=== PATIENT | male | born 1950 | race Caucasian/White ===

== ENCOUNTER 2019-05-11 12:21 | Inpatient (IN) | payer OTHER, BC ==
[~2019-05-11] VITALS: Ht 190.5 cm; Wt 93.9 kg
[~2019-05-11 12:21] MED LIST: ANDROGEL1.25 GM TOP; COLACE100 MG PO; COREG6.25 M1 PO; DECADRON4 MG PO; HYDRALAZINE HCL50 MG PO; INLYTA5 MG PO; LASIX40 MG PO; LEVO-T25 MCG PO; PROTONIX TR40 M1 PO; VITAMIN B12-FO1 EACH PO; ZETIA10 M1 PO; ZOS3PM IV
[2019-05-11 12:22] VITALS: Ht 190.5 cm; Wt 93.9 kg
[2019-05-11 12:48] LABS: BASOPHIL % 0.3 % (0-2); PLATELET COUNT 216 x10^3mcL (130-400)
[2019-05-11 12:54] LABS: RED CELL DISTRIBUTION WIDTH 20.9 % (11.5-14.5)
[2019-05-11 13:04] LABS: CALCIUM 8.2 mg/dL (8.5-10.1); CARBON DIOXIDE 31.7 mmol/L (21-32); CHLORIDE SERUM 99 mmol/L (98-107); CREATININE SERUM 0.9 mg/dL (0.7-1.3); GFR1 > 60 mL/min; GLUCOSE SERUM 132 mg/dL (74-106); POTASSIUM SERUM 4.5 mmol/L (3.5-5.1); SODIUM SERUM 136 mmol/L (136-145)
[2019-05-11 13:17] LABS: ALBUMIN 1.7 g/dL (3.4-5.0); ALKALINE PHOSPHATASE 218 U/L (46-116); ALT/SGPT 42 U/L (16-63); AST/SGOT 48 U/L (15-37); BILIRUBIN TOTAL 0.7 mg/dL (0.20-1.00); MAGNESIUM 1.6 mg/dL (1.8-2.4); TOTAL PROTEIN, SERUM 6.1 g/dL (6.4-8.2)
[2019-05-11 14:17] LABS: microscopic required? YES; urine erythrocyte TRACE (NEGATIVE)
[2019-05-11 17:46] VITALS: BP 169/88
[2019-05-11 20:15] VITALS: BP 115/58
[2019-05-12 05:10] VITALS: BP 87/50
[2019-05-12 15:09] VITALS: BP 87/45
[2019-05-12 17:23] VITALS: BP 133/64
[2019-05-12 17:27] VITALS: BP 94/45
[2019-05-12 21:13] VITALS: BP 96/48
[2019-05-13 04:14] VITALS: BP 70/40
== END 2019-05-13 09:19 | disposition expired | DRG 189 ==
LOC: ED 12:21 → MU 14:50 → ED 14:50 → IC 14:50 → DU 14:50 → MU 15:01 → IC 15:01 → MU 15:27 → DU 16:18
PROVIDERS: Emergency Medicine; ADMIT Family Medicine
DX: J96.21 Acute and chronic respiratory failure with hypoxia (principal); E43 Unspecified severe protein-calorie malnutrition; C34.90 Malignant neoplasm of unspecified part of unspecified bronchus or lung; C79.51 Secondary malignant neoplasm of bone; E11.9 Type 2 diabetes mellitus without complications; Z66 Do not resuscitate; R74.0 Nonspecific elevation of levels of transaminase and lactic acid dehydrogenase [LDH]; Z51.5 Encounter for palliative care; E83.42 Hypomagnesemia; D72.829 Elevated white blood cell count, unspecified; F43.9 Reaction to severe stress, unspecified; Z90.5 Acquired absence of kidney; Z68.20 Body mass index [BMI] 20.0-20.9, adult; Z79.84 Long term (current) use of oral hypoglycemic drugs; Z88.8 Allergy status to other drugs, medicaments and biological substances; Z85.528 Personal history of other malignant neoplasm of kidney; I10 Essential (primary) hypertension; J96.22 Acute and chronic respiratory failure with hypercapnia
CPT/HCPCS: G0378; J2270; J7030; Q0092